=== PATIENT | female | born 1950 | race Caucasian/White ===

== ENCOUNTER → 2020-06-20 | Outpatient (CLI) | payer OTHER ==
[~2020-06-20] MED LIST: AUGMENTIN 875-1 EACH PO
== END ==
LOC: KOH-I 13:38
DX: R07.9 Chest pain, unspecified (principal)
CPT/HCPCS: 71111

== ENCOUNTER → 2020-07-16 | Outpatient (CLI) | payer OTHER | LOC: MRI 08:22 | DX: E55.9 Vitamin D deficiency, unspecified (principal); E78.5 Hyperlipidemia, unspecified; I10 Essential (primary) hypertension; R29.6 Repeated falls; Z78.0 Asymptomatic menopausal state; G31.9 Degenerative disease of nervous system, unspecified; R90.82 White matter disease, unspecified | CPT/HCPCS: 36415; 70553; 82565; A9577 ==

== ENCOUNTER → 2020-08-07 | Outpatient (CLI) | payer OTHER | LOC: US 10:29 | DX: Z00.00 Encounter for general adult medical examination without abnormal findings (principal); R27.0 Ataxia, unspecified; R41.3 Other amnesia; G60.9 Hereditary and idiopathic neuropathy, unspecified; G45.1 Carotid artery syndrome (hemispheric) | CPT/HCPCS: 93880 ==

== ENCOUNTER → 2020-12-09 | Outpatient (CLI) | payer OTHER ==
[2020-12-09 12:23] LABS: HEMOGLOBIN 14.2 gm/dl (12.3-15.3); RED BLOOD COUNT 4.43 M/UL (4.00-5.10); WHITE BLOOD COUNT 8.4 K/UL (4.5-11.0)
[2020-12-09 12:50] LABS: BUN/CREATININE RATIO 21 (0-10)
[2020-12-10 10:14] LABS: THYROXINE (T4) 8.4 ug/dL (4.5-12.0)
== END ==
LOC: LAB 11:06
PROVIDERS: Nurse Practitioner
DX: R91.8 Other nonspecific abnormal finding of lung field (principal); F39 Unspecified mood [affective] disorder; I10 Essential (primary) hypertension; R53.83 Other fatigue; E78.5 Hyperlipidemia, unspecified
CPT/HCPCS: 36415; 71046; 80053; 80061; 81001; 84436; 84443; 84480; 85025